=== PATIENT | male | born 1990 | race African-American/Black ===

== ENCOUNTER 2021-06-23 18:28 | Emergency (ER) | payer SELFPAY ==
[~2021-06-23] VITALS: Ht 172.7 cm; Wt 60.0 kg
[2021-06-23] MEDS ORDERED: ACETAMINOPHEN 500MG TABLET PO ONE (19:00)
[2021-06-23] MEDS ORDERED: ONDANSETRON 4MG ODT PO ONE (19:00)
[2021-06-23] MEDS ORDERED: DEXAMETHASONE 4MG TABLET PO ONE (19:00)
[2021-06-23 22:00] VITALS: BP 118/72
== END 2021-06-23 22:51 | disposition home or self-care (01) ==
LOC: ER 18:28
DX: B34.9 Viral infection, unspecified (principal); Z20.822 Contact with and (suspected) exposure to COVID-19
CPT/HCPCS: 71045; 87426; 87804; 99284; J8540; Q0162